=== PATIENT | female | born 1975 | race African-American/Black ===

== ENCOUNTER 2018-04-28 17:25 | Emergency (ER) | payer MEDICAID, OTHER ==
[~2018-04-28] VITALS: Ht 180.3 cm; Wt 92.0 kg
[2018-04-28] MEDS ORDERED: IBUPROFEN 600MG TABLET PO ONE (18:30)
[2018-04-28 20:39] VITALS: BP 115/70
== END 2018-04-28 20:40 | disposition home or self-care (01) ==
LOC: ER 17:25
DX: S80.01XA Contusion of right knee, initial encounter (principal); S60.512A Abrasion of left hand, initial encounter; W01.0XXA Fall on same level from slipping, tripping and stumbling without subsequent striking against object, initial encounter; Y93.89 Activity, other specified; Y92.018 Other place in single-family (private) house as the place of occurrence of the external cause
CPT/HCPCS: 73130; 73564; 73630; 99284; X7700; Z7610